=== PATIENT | female | born 1955 | race Caucasian/White ===

== ENCOUNTER 2016-07-11 14:53 | Inpatient (IN) | payer BC ==
--- NOTE | ~2016-07-11 | CT57 ---
[facility] A Service of [facility] & [facility] RADIOLOGY TEXT RESULTS PATIENT: TERRIE VALLEJO LOCATION: [facility] 332-01 : 54 UNIT #: [id number] AGE: [address]: Justin Hughes MD SEX: F ORDER DR: [id number] [facility] [address]. [place], [place] [address] [id number] I MR#: [id number] Acc #: [id number] NAME: TERRIE VALLEJO : 1955 SEX: F STUDY DATE/TIME: 07/12/2016 16:26 UNIT: [address] ROOM: [facility] STUDY DESCRIPTION: CT Chest Wo Cont Attending Physician: Justin Hughes M.D. Ordering Physician: Justin Hughes M.D. Primary Care Physician: Rolando Jean Baptiste M.D. MEDICAL IMAGING REPORT This report is preliminary unless electronic signature is present EXAM CT chest without contrast. DATE OF EXAM 07/12/2016 INDICATIONS Shortness of air for 2 to 3 days. Epigastric abdominal pain. Pancreatic carcinoma, status post chemotherapy and radiation therapy. TECHNIQUE CT of the chest without contrast. Coronal and sagittal reconstructions were obtained. NOTE: This CT exam was performed with one or more of the following radiation dose reduction techniques: automatic exposure control, adjustment of mA and/or kV according to patient size, and iterative reconstruction. COMPARISON Concurrent CT abdomen dated 07/12/2016. CT chest dated 07/02/2016. FINDINGS Enlarged mediastinal lymph nodes are fairly similar to the prior study. There is no pericardial effusion. The right pleural effusion has significantly increased from the prior study. A moderate left effusion is essentially unchanged. There is diffuse interstitial thickening, as well as perihilar ground-glass areas and areas of consolidation. Overall, there does appear to be increased density of multifocal airspace opacities when compared to the prior exam. Please note that the right lower lobe is poorly evaluated given the atelectasis from the patient's large effusion. Central airways are patent. Please refer to the separate dictated report for details on the abdomen. [facility] A Service of [facility] & [facility] RADIOLOGY TEXT RESULTS PATIENT: TERRIE VALLEJO LOCATION: [facility] 332-01 : 54 UNIT #: [id number] AGE: [address]: Justin Hughes MD SEX: F ORDER DR: No new osseous abnormalities. IMPRESSION 1. There has been slight progression and increased density of the multifocal airspace opacities throughout both lungs. This is most consistent with a multifocal pneumonia. Please note that that given the associated interstitial thickening, a component of pulmonary edema should also be considered. 2. Enlarged large right pleural effusion. This now results in atelectasis in the majority of the right lower lobe. 3. Moderate left pleural effusion is unchanged. 4. Mediastinal lymphadenopathy is similar to the prior exam. Dictated by... Braydon Quijano M.D. THIS IS AN ELECTRONICALLY VERIFIED REPORT Braydon Quijano M.D. at 07/13/2016 6:43 PM USMAN/mari TD: 07/12/2016 22:58 JOB #: [id number] MEDICAL IMAGING REPORT COPY
--- NOTE | ~2016-07-11 | CR72 ---
[facility] A Service of [facility] & [facility] RADIOLOGY TEXT RESULTS PATIENT: TERRIE VALLEJO LOCATION: [facility] 332-01 : 54 UNIT #: [id number] AGE: [address]: Justin Hughes MD SEX: F ORDER DR: [id number] [facility] [address]. [place], [place] [address] [id number] I MR#: [id number] Acc #: [id number] NAME: TERRIE VALLEJO : 1955 SEX: F STUDY DATE/TIME: 07/15/2016 11:46 UNIT: [address] ROOM: [facility] STUDY DESCRIPTION: CR Chest Single View Portable Attending Physician: Justin Hughes M.D. Ordering Physician: Yary Ponce M.D. Primary Care Physician: Rolando Jean Baptiste M.D. MEDICAL IMAGING REPORT This report is preliminary unless electronic signature is present EXAM AP portable chest 07/15/2016 COMPARISON 07/11/2016. HISTORY Status post thoracentesis. FINDINGS An AP view of the chest obtained. Bilateral infiltrates persist throughout both lungs. Right-sided chest port remains in place. There is a decrease in the amount of right pleural fluid. No pneumothorax is seen. CONCLUSION Continued diffuse severe bilateral infiltrates. Decreased right pleural fluid presumably post thoracentesis with no pneumothorax identified. Dictated by... Jarret Rao M.D. THIS IS AN ELECTRONICALLY VERIFIED REPORT Jarret Rao M.D. at 07/15/2016 12:57 PM Nelida TD: 07/15/2016 12:42 JOB #: [id number] MEDICAL IMAGING REPORT COPY
--- NOTE | ~2016-07-11 | US84 ---
[id number] [facility] [address] [place], [place] [address] [id number] I MR#: [id number] Acc #: [id number] NAME: TERRIE VALLEJO : 1955 SEX: F STUDY DATE/TIME: 07/17/2016 11:29 UNIT: C3A PCU ROOM: [facility] STUDY DESCRIPTION: US LE Veins Complete Gerardo Stdy Attending Physician: Justin Hughes M.D. Ordering Physician: Geoff Jama M.D. Primary Care Physician: Rolando Jean Baptiste M.D. MEDICAL IMAGING REPORT This report is preliminary unless electronic signature is present EXAM Color Doppler ultrasound examination of the lower extremities HISTORY Patient taking Lovenox for DVT. Bilateral leg swelling beginning February 2016. TECHNIQUE Ultrasound evaluation was performed with yanes-scale color-flow and Doppler spectral waveform analysis. FINDINGS Extensive venous thrombosis is seen bilaterally. Thrombus is identified from the common femoral veins down into the calf veins on both sides. The veins are noncompressible. Above the knee on both sides with thrombus is partially occlusive with some flow seen. This probably reflects chronic DVT with recanalization. IMPRESSION Findings suggest chronic DVT with recanalization. Thrombus is seen from the common femoral veins down to the popliteal veins on both sides but there is some flow noted suggesting partial recanalization. The venous thrombosis was not present on the previous ultrasound examination in February 2016. Dictated by... Bartolome Rojas M.D. THIS IS AN ELECTRONICALLY VERIFIED REPORT Bartolome Rojas M.D. at 07/17/2016 3:58 PM RLF/soledad TD: 07/17/2016 12:49 JOB #: [id number] MEDICAL IMAGING REPORT COPY
--- NOTE | ~2016-07-11 | CR72 ---
[facility] A Service of [facility] RADIOLOGY TEXT RESULTS PATIENT: TERRIE VALLEJO LOCATION: [facility] 332-01 : 54 UNIT #: [id number] AGE: [address]: Justin Hughes MD SEX: F ORDER DR: [id number] [facility] [address]. [place], [place] [address] [id number] E MR#: [id number] Acc #: [id number] NAME: TERRIE VALLEJO : 1955 SEX: F STUDY DATE/TIME: 07/11/2016 14:23 UNIT: [facility] ROOM: STUDY DESCRIPTION: CR Chest Single View Portable Attending Physician: Bartolome Alonso M.D. Ordering Physician: Bartolome Alonso M.D. Primary Care Physician: Rolando Jean Baptiste M.D. MEDICAL IMAGING REPORT This report is preliminary unless electronic signature is present EXAM Portable chest x-ray 07/11/2016 HISTORY Short of air. Pancreatic cancer. Diabetes, stroke. Symptoms began June 14. TECHNIQUE AP radiograph of chest presented COMPARISON CT scan 07/02/2016 and chest radiograph 07/06/2016 FINDINGS Chest port unchanged. Visualized cardia and mediastinal contours stable. Extensive bilateral airspace disease involving all lung zones most pronounced at the bilateral mid to upper lung zones and bilateral lung bases. Increased airspace density in the bilateral upper lung zones compared to prior study. Continued dense opacification at the bilateral lung bases felt secondary to both airspace disease and small bilateral pleural effusions. The effusions have increased in volume bilaterally. Findings suggest worsening multifocal pneumonia with bilateral parapneumonic effusions. There is no pneumothorax. Dictated by... Jarret Singleton M.D. THIS IS AN ELECTRONICALLY VERIFIED REPORT Jarret Singleton M.D. at 07/12/2016 5:52 PM JSK/to [facility] A Service of [facility] RADIOLOGY TEXT RESULTS PATIENT: TERRIE VALLEJO LOCATION: [facility] 332-01 : 54 UNIT #: [id number] AGE: [address]: Justin Hughes MD SEX: F ORDER DR: TD: 07/11/2016 17:19 JOB #: [id number] MEDICAL IMAGING REPORT COPY
--- NOTE | ~2016-07-11 | CR63 ---
[facility] A Service of [facility] & [facility] RADIOLOGY TEXT RESULTS PATIENT: TERRIE VALLEJO LOCATION: [facility] 332- : 54 UNIT #: [id number] AGE: [address]: Justin Hughes MD SEX: F ORDER DR: [id number] [facility] [address]. [place], [place] [address] [id number] I MR#: [id number] Acc #: [id number] NAME: TERRIE VALLEJO : 1955 SEX: F STUDY DATE/TIME: 07/17/2016 11:54 UNIT: [address] ROOM: [facility] STUDY DESCRIPTION: CR Chest 2 View Attending Physician: Justin Hughes M.D. Ordering Physician: Geoff Jama M.D. Primary Care Physician: Rolando Jean Baptiste M.D. MEDICAL IMAGING REPORT This report is preliminary unless electronic signature is present EXAM PA lateral chest INDICATIONS 60-year-old female with shortness of breath for 2 days. Compared with 07/15/2016 FINDINGS Stable right pleural effusion. Bilateral interstitial and airspace opacities are slightly improved. Heart size stable. Stable chest port. Trace left pleural effusion. IMPRESSION 1. Slight interval improvement in bilateral interstitial and airspace opacities. 2. Small right pleural effusion and trace left pleural effusion. Dictated by... Edwin Viera M.D. THIS IS AN ELECTRONICALLY VERIFIED REPORT Edwin Viera M.D. at 07/17/2016 4:03 PM ELO/soledad TD: 07/17/2016 14:04 JOB #: [id number] MEDICAL IMAGING REPORT COPY
--- NOTE | ~2016-07-11 | CT7 ---
[facility] A Service [facility] & [facility] RADIOLOGY TEXT RESULTS PATIENT: TERRIE VALLEJO LOCATION: [facility] 332-01 : 54 UNIT #: [id number] AGE: [address]: Justin Hughes MD SEX: F ORDER DR: [id number] [facility] [address]. [place], [place] [address] [id number] I MR#: [id number] Acc #: [id number] NAME: TERRIE VALLEJO : 1955 SEX: F STUDY DATE/TIME: 07/12/2016 16:00 UNIT: [address] ROOM: [facility] STUDY DESCRIPTION: CT Abdomen Wo Cont Attending Physician: Justin Hughes M.D. Ordering Physician: Justin Hughes M.D. Primary Care Physician: Rolando Jean Baptiste M.D. MEDICAL IMAGING REPORT This report is preliminary unless electronic signature is present EXAM CT abdomen INDICATIONS Epigastric abdominal pain. Shortness of air. Pancreatic carcinoma status post radiation therapy and chemotherapy. TECHNIQUE CT of the abdomen without contrast. Coronal and sagittal reconstructions were obtained. This CT exam was performed with one or more of the following radiation dose reduction techniques: automatic control, adjustment of mA and/or kV according to patient size, and iterative reconstruction. COMPARISON Concurrent CT chest 07/12/[address] chest 07/02/2016. CT abdomen 02/25/2016. FINDINGS Low attenuation hepatic metastases are fairly similar to the prior exam. No significant change in the short interval. There is a focal mass in the pancreatic tail region measuring up to 3.9 x 2.6 cm. This is not significantly changed in the short interval. The mass measures approximately 3.9 x 2.7 cm which is decreased from the prior exam 5.2 x 3.4 cm on 02/25/2016. Exact margins of the lesion are challenging given the lack of IV contrast. 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 This is unchanged. There are several small peritoneal nodules likely representing peritoneal metastatic disease. No new osseous abnormalities. [facility] A Service of [facility] & [facility] RADIOLOGY TEXT RESULTS PATIENT: TERRIE VALLEJO LOCATION: [facility] 332-01 : 54 UNIT #: [id number] AGE: [address]: Justin Hughes MD SEX: F ORDER DR: IMPRESSION 1. Although limited without IV contrast, the primary pancreatic mass appears to have decreased in size. 2. Multiple hepatic metastases are unchanged from most recent exam. 3. Possible peritoneal metastatic disease was not present on the 02/25/2016 exam. Dictated by... Braydon Quijano M.D. THIS IS AN ELECTRONICALLY VERIFIED REPORT Braydon Quijano M.D. at 07/13/2016 6:43 PM RPMaximilian/stephanier TD: 07/12/2016 23:00 JOB #: [id number] MEDICAL IMAGING REPORT COPY
--- NOTE | ~2016-07-11 | CO ---
Unit #: [id number] #: [id number] Patient: TERRIE SANCHEZ [id number] [address] [place], [place] [address] [id number] I MR#: [id number] NAME: TERRIE SANCHEZ ROOM: 332 Age: 60 Sex: F Admission Date: 07/11/2016 : 1955 Attending Physician: Justin Hughes M.D. Primary Care Physician: Rolando Jean Baptiste M.D. Consultation Date: 07/12/2016 CONSULTATION REPORT REASON FOR CONSULTATION Metastatic pancreatic cancer. HISTORY PRESENT ILLNESS Ms. Sanchez is a 60-year-old with a history of metastatic pancreatic cancer who is known to me from admission at [facility] including last week. She is followed by Dr. Gardner and is currently receiving chemotherapy with Abraxane and gemcitabine. She is supposed to have received chemotherapy earlier this week, but presented here to the emergency room because of worsening shortness of breathing. Dr. Bartolome Alonso, the ER physician called me after discussing situation, he doubted that she had infection, but given her shortness of breathing and weakness, decided to proceed with admission with potentially to receive chemotherapy during the hospital stay. Ms. Sanchez tells me that after she went home, she again became short of breath, cough without much expectoration, no hemoptysis. Appetite has been poor and she remains fatigued with pain in her low back. PAST MEDICAL HISTORY Metastatic pancreatic cancer diagnosed in 02/2016 when she was presented with the stroke, was found to have a mass in the body of the pancreas as well as multiple liver lesions with biopsy of both the pancreatic mass and liver confirming metastatic adenocarcinoma. Other medical problems include asthma, bipolar disorder, type 2 diabetes, gastroesophageal reflux disease, seasonal allergies, history of pulmonary embolism. PAST SURGICAL HISTORY Includes EGD, cholecystectomy, tubal ligation. FAMILY HISTORY Coronary artery disease in father and stroke in mother. SOCIAL HISTORY Used to drink alcohol occasionally. Never smoker. Does not drink. and lives with her . REVIEW OF SYSTEMS 14-point review of systems taken. CONSTITUTIONAL: As discussed above. EYES: Negative. EARS, NOSE, MOUTH, AND THROAT: Negative. CARDIOVASCULAR: Negative. RESPIRATORY: Shortness of breathing as discussed above. GASTROINTESTINAL: Negative. Unit #: [id number] #: [id number] Patient: TERRIE SANCEHZ GENITOURINARY: Negative. ALLERGIC/LYMPHATIC: Negative. SKIN: Negative. PSYCHIATRIC: History of bipolar disorder. PHYSICAL EXAMINATION GENERAL: Performance status is 1 to 2. She is a frail middle-aged woman, who looks older than her stated age. She is awake, alert, and oriented x3. VITAL SIGNS: Temperature is 98.6, pulse is 113, respiratory rate 16, blood pressure 120/70, O2 saturations 100% on oxygen. HEENT: Shows evidence of recent weight loss. Mild pallor. No icterus. Mucous membranes are dry. NECK: Without adenopathy, JVD, or thyromegaly. CARDIOVASCULAR: First and second heart sounds are heard with tachycardia. No murmurs, gallops, or rubs. LUNGS: Decreased air entry bilaterally somewhat worse on the right side. Few scattered rhonchi. ABDOMEN: Soft, nontender. Bowel sounds are active. EXTREMITIES: Show trace edema. Pulses are not felt. NEUROLOGIC: She is awake, alert, and oriented x3 without any focal findings. SKIN: Negative. ALLERGIC/LYMPHATIC: Negative. PSYCHIATRIC: Normal affect. Appears mildly depressed, which is not unexpected. DIAGNOSTIC STUDIES LABORATORY RESULTS: CBC with a white count of 7.8, hemoglobin is 10.1, platelet count is 390,000. Lactic acid 1.5. Metabolic panel with a BUN of 18, creatinine is 0.6, glucose is 139, ALT is 53, alkaline phosphatase 534, bilirubin is 0.4, albumin is 2.7, procalcitonin level is 0.37. IMAGING STUDIES: Chest x-ray, single view, was personally reviewed by me and I compared to her recent x-rays, which she has had at [facility]. She has bilateral air space disease, most pronounced in the mid to upper lung zone with some small bilateral pleural effusions. No pneumothorax. ASSESSMENT AND PLAN Ms. Sanchez is a 60-year-old with a history of metastatic pancreatic cancer currently receiving chemotherapy with Abraxane and gemcitabine. Her last chemo markers showed a CA-19-9, which used to be over 27,000 and is now currently about 5000 indicating a response. This is the third admission in as many weeks for shortness of breathing, pleural effusion, and bilateral lung infiltrates, which is likely noninfectious or at least not bacterial infection given the low procalcitonin as well as multiple course of antibiotics. Metastatic involvement of her lungs from pancreatic cancer would be unusual, but certainly a possibility although the tumor markers have shown an improvement suggesting response to current chemotherapy. Other positives include heart failure with pulmonary edema as well as atypical infection such as fungal or Pneumocystis carinii pneumonia. I discussed situation with the patient as well as with Dr. Hughes over the phone. RECOMMENDATIONS 1. CT scan of the chest and abdomen to be done with contrast to evaluate for metastatic disease to see with evidence of improvement radiologically and liver metastasis as well as to re-characterize her lung masses. 2. Would continue Lovenox given a history of pulmonary embolism. Unit #: [id number] #: [id number] Patient: TERRIE SANCHEZ 3. LDH, BNP, echocardiogram to evaluate both for LV function as well as evaluate for other possibility to suggest pericardial effusion. 4. Agree with current pain management. Plans were discussed in detail with Ms. Sanchez. We will follow with you. Dictated by... Ashly Tang/tomasz TD: 07/13/2016 06:59 JOB #: [id number] CONSULTATION REPORT X Geoff Jama MD X CONSULTATION REPORT
--- NOTE | ~2016-07-11 | XA203 ---
[facility] A Service of [facility] & [facility] RADIOLOGY TEXT RESULTS PATIENT: TERRIE VALLEJO LOCATION: [facility] 332- : 54 UNIT #: [id number] AGE: [address]: Justin Hughes MD SEX: F ORDER DR: [id number] [facility] [address]. [place], [place] [address] [id number] I MR#: [id number] Acc #: [id number] NAME: TERRIE VALLEJO : 1955 SEX: F STUDY DATE/TIME: 07/15/2016 11:33 UNIT: [address] ROOM: [facility] STUDY DESCRIPTION: XA Thoracentesis Attending Physician: Justin Hughes M.D. Ordering Physician: Justin Hughes M.D. Primary Care Physician: Rolando Jean Baptiste M.D. MEDICAL IMAGING REPORT This report is preliminary unless electronic signature is present EXAM Ultrasound-guided thoracentesis INDICATION Right pleural effusion PROCEDURE There risks, benefits, and alternatives to the procedure were explained to the patient and signed, informed consent was obtained. She was seated in the upright position. Preliminary ultrasound of the right hemithorax was performed which demonstrated a moderate right pleural effusion. This image was permanently saved. Overlying skin was marked. Patient was prepped and draped in the usual sterile fashion. Time-out was performed as per protocol. Skin and subcutaneous tissues were anesthetized with buffered lidocaine and a Dr. Jerry's Smooth Move catheter was advanced into the fluid with aspiration of serous material. The catheter was hooked to suction tubing. There is evacuation of a total of 650 mL of serous material. Catheter was then removed and manual pressure was applied until hemostasis was obtained. IMPRESSION Technically successful ultrasound guided right thoracentesis with evacuation 650 mL of serous material. Ultrasound was used during the procedure and permanent images were saved. Dictated by... Yary Ponce M.D. THIS IS AN ELECTRONICALLY VERIFIED REPORT Yary Ponce M.D. at 07/16/2016 4:35 PM GALILEO/narendra TD: 07/16/2016 08:35 JOB #: [id number] [facility] A Service of [facility] RADIOLOGY TEXT RESULTS PATIENT: TERRIE VALLEJO LOCATION: [facility] 332-01 : 54 UNIT #: [id number] AGE: [address]: Justin Hughes MD SEX: F ORDER DR: MEDICAL IMAGING REPORT COPY
--- NOTE | ~2016-07-11 | A ---
[facility] Nutrition Therapy DATE: 07/15/16 Patient: TERRIE VALLEJO Physician: MARÍA Address: [address] Room/Bed: [address] [place] [address], Zip: [place] [address] Admit Date: 07/11/16 Date of : 53 Height: 5 4.5 Weight: 112 51 NUTRITIONAL ASSESSMENT: REASON: 1 point malnutrition risk score re: eating poorly Admitting Dx: 60 y/o female admitted with SOB PMH: COPD, GERD, CVA, DM, anxiety, pancreatic cancer (Dx Jan) Anthropometrics: Ht: 64.5", Wt: 118 lbs, BMI: 19.9 Labs: K+ 3.4, Glucose 128, POC 130, AST 63 Meds: Furosemide, NACL, Levaquin, Vit E, PPI, Milk of Mg, Phenergan prn I/O & Bowel function: LBM 07/14 Skin Integrity: CSI R chest, edema LLE trace and RLE 1+ Estimated Nutrition Needs: Increased needs r/t cancer and weight loss Assessment: Chart reviewed, events noted. Weekend RD attempted to see patient but she was off the floor. Patient confirms eating poorly due to chemo/radiation with pancreatic cancer dx in Jan of last year. It is unclear whether her diabetes is due to the cancer or not, but it is well controlled, she takes Metformin at home and states her glucose usually runs in the 140's. Although she has gained 3 lbs recently she has lost overall ~12 lbs since January (9.2% loss; significant). She reports decreased appetite and dry mouth, RD ordering chocolate Ensure BID, drinks Ensure/protein shakes at home made by her . reports they were supposed to see an outpatient RD but were unable to due to the patients current clinical condition. Patient is on CC diet but patient would like it changed to regular- RD agreed- will ask MD to change. RD provided diet education with the following handouts: 1. Pancreatic cancer and DM, 2. 1800 calorie 5-day sample meal plan, 3. Ways to increase kcals/protein in diet, 4. HC/HP recipes. Left RD card as well, patient and appreciative of info. Will follow. Dx: Unintentional weight loss r/t decreased appetite, cancer AEB 1 point malnutrition risk score, 9.2% weight loss in 5 months. Intervention: Regular diet, Ensure BID, diet education Monitoring, Evaluation and Goals: 1. Adequate oral intake > 50-75% of meals/supps. 2. Prevent further unintentional weight loss. [facility] Nutrition Therapy DATE: 07/15/16 Patient: TERRIE VALLEJO Physician: MRAÍA Address: [address] [place] [address] Room/Bed: [address] [place] [address], Zip: [place] [address] Admit Date: 07/11/16 Date of : [birth year] Height: 5 4.5 Weight: 112 51 3. Glucose usually WNL. Monitor: Per protocol, criteria to determine if above goals met Recommendations: 1. Please change diet to regular due to the patient's recent weight loss, cancer dx, decreased appetite. Her blood glucose is well controlled at this time. Encourage small, frequent meals and continue Accucheks at home with weight monitoring as discussed with the patient. 2. RD ordered chocolate Ensure BID to increase kcal/protein intake. 3. Replace lytes prn (K+ low). Check A1C level. 4. RD gave diet education related to pancreatic cancer/DM, ways to increase kcals/protein in diet. Will follow hospital course Moderate nutrition risk Respectfully, Yajaira Palumbo RD, LD Food and Nutritional Services [facility] cc: client file
--- NOTE | ~2016-07-11 | HP ---
Unit #: [id number] #: [id number] Patient: TERRIE VALLEJO [id number] [address] [place], [place] [address] [id number] Ephraim MR#: [id number] NAME: TERRIE VALLEJO ROOM: 332 Age: 60 Sex: F Admission Date: 07/11/2016 : 1955 Attending Physician: Justin Hughes M.D. Primary Care Physician: Rolando Jean Baptiste M.D. HISTORY AND PHYSICAL CHIEF COMPLAINT Shortness of breath. HISTORY OF PRESENT ILLNESS A 60-year-old female with past medical history of metastatic pancreatic cancer, bilateral pleural effusion, recent pneumonia, recently admitted at [facility], who presented with a complaint of cough, shortness of breath, increasing exertion, dyspnea. I am seeing the patient at the bedside complaining of shortness of breath. Denies any chest pain. No nausea, vomiting, diarrhea. No other complaint. REVIEW OF SYSTEMS Positive for pallor. No edema. No cyanosis. No jaundice. The rest are per history of present illness. The rest of a 12-point review of system has been reviewed and is negative. PAST MEDICAL HISTORY As described above. Also, has history of bipolar disorder, diabetes, gastroesophageal reflux disease, seasonal allergies, history of pulmonary embolism, history of DVT. PAST SURGICAL HISTORY 1. EGD. 2. Cholecystectomy. 3. Tubal ligation. FAMILY HISTORY Coronary artery disease and stroke. PHYSICAL EXAMINATION VITAL SIGNS: Temperature 98, pulse 87, respirations 12, blood pressure 110/70. NEUROLOGIC: Awake, alert, oriented. No neuro deficit. HEENT: PERRLA plus 1. NECK: Supple. No JVD. CHEST: Bilateral air entry. Bilateral mild rhonchi. GASTROINTESTINAL: Nontender, soft. Bowel sounds positive. EXTREMITIES: No edema. SKIN: No rash. No ulcer. LYMPHATIC: No lymphadenopathy. DIAGNOSTIC STUDIES Labs and imaging have been reviewed. Unit #: [id number] #: [id number] Patient: TERRIE VALLEJO ASSESSMENT 1. Acute hypoxic respiratory failure. 2. Acute bilateral pleural effusion. 3. Pneumonia. 4. History of pancreatic cancer. 5. Critically ill patient. PLAN Plan is to continue IV antibiotics, IV steroids, diuretics, gastrointestinal/deep venous thrombosis prophylaxis, control sugars. Will plan to do a thoracentesis. Please see orders for detailed plan. Dictated by Ashly Mead TD: 07/18/2016 09:29 JOB #: [id number] HISTORY AND PHYSICAL X Justin Hughes MD HISTORY AND PHYSICAL
--- NOTE | ~2016-07-11 | XA77 ---
[facility] A Service of [facility] RADIOLOGY TEXT RESULTS PATIENT: TERRIE SANCHEZ LOCATION: C3A 332-01 : [birth year] UNIT #: [id number] AGE: [address]: Justin Hughes MD SEX: F ORDER DR: [id number] [facility] [address] [facility]. [place], [place] [address] [id number] MR#: [id number] Acc #: [id number] NAME: TERRIE SANCHEZ : 1955 SEX: F STUDY DATE/TIME: 07/15/2016 11:33 UNIT: C3A PCU ROOM: [facility] STUDY DESCRIPTION: XA CVC Port Devive Check Attending Physician: Justin Hughes M.D. Ordering Physician: Justin Hughes M.D. Primary Care Physician: Rolando Jean Baptiste M.D. MEDICAL IMAGING REPORT This report is preliminary unless electronic signature is present EXAM MediPort check INDICATION Ms. Sanchez has a port which was placed April 11, 2016. She reports that there has been difficulty aspirating from this port. Although it flushes easily. Port check has been requested. FINDINGS There risks, benefits, and alternatives to the procedure were explained to the patient and signed, informed consent was obtained. She was placed supine on the angiographic table. The port was accessed by the interventional radiology nurse. Initial wood and hardware outfitter image showed a previously placed right internal jugular vein port terminating within the superior vena cava. I then performed a catheter gram through the port which showed adherent fibrin sheath around the tip of the port. Patient's superior vena cava appears to be patent. Total fluoroscopy time was 0.1 minutes and a total of 4 fluoroscopic images were obtained. The patient tolerated the well and there were no immediate complications. IMPRESSION Patient's right internal jugular vein MediPort demonstrates adherent fibrin sheath around the distal tip. Treatment with tPA infusion is recommended. Dictated by... Yary Ponce M.D. THIS IS AN ELECTRONICALLY VERIFIED REPORT Yary Ponce M.D. at 07/16/2016 4:35 PM AFF/jw TD: 07/16/2016 08:32 [facility] A Service of [facility] RADIOLOGY TEXT RESULTS PATIENT: TERRIE SANCHEZ LOCATION: [facility] 332-01 : [birth year] UNIT #: [id number] AGE: [address]: Justin Hughes MD SEX: F ORDER DR: PEDRO #: [id number] MEDICAL IMAGING REPORT COPY
--- NOTE | ~2016-07-11 | OR ---
Unit #: [id number] #: [id number] Patient: TERRIE VALLEJO [id number] [address] [address] [id number] I MR#: [id number] NAME: TERRIE VALLEJO ROOM: [facility] Date of Procedure: 07/13/2016 Admission Date: 07/11/2016 Surgeon: Justin Hughes M.D. : 1955 Attending Physician: Justin Hughes M.D. Primary Care Physician: Rolando Jean Baptiste M.D. PROCEDURE OPERATIVE NOTE PROCEDURE PERFORMED Left-sided thoracentesis. DETAIL OF PROCEDURE After taking consent from patient explaining risks and benefits, the patient was placed in a proper position. Under ultrasound guidance with all aseptic technique, a small chest tube was introduced into the left pleural cavity and a 600 mL blood-tinged pleural fluid was drained and was sent to the lab for exam. Patient tolerated procedure well. No complications happened. Chest x-ray was ordered. Dictated by... Ashly Mead TD: 07/18/2016 09:43 JOB #: [id number] PROCEDURE OPERATIVE NOTE X Justin Hughes MD PROCEDURE OPERATIVE NOTE
--- NOTE | ~2016-07-11 | EKG ---
PATIENT: TERRIE VALLEJO UNIT #: [id number] Ventricular Rate: 113 BPM Atrial Rate: 113 BPM P-R Interval: 128 ms QRS Duration: 66 ms Q-T Interval: 338 ms QTC Calculation(Bezet): 463 ms P [place]: 58 degrees Calculated R [place]: 48 degrees Calculated T [place]: 55 degrees Diagnosis Line: Sinus tachycardia Diagnosis Line: Normal ECG Diagnosis Line: No previous ECGs available Diagnosis Line: Confirmed by DENIS BENNETT MD ([id number]) on 07/12/2016 Diagnosis Line: 6:22:24 AM INTERPRETING MD: DONALD WALSH
[~2016-07-11 14:53] MED LIST: ACETAMINOPHEN PO; ALBUTEROL2.5 MG/0.5 INH; ASPIRIN81 M2 PO; COUMADIN4 MG PO; DIPHENHYDRAMINE50 M1 PO; DRAMAMINE PO; GLIPIZIDE5 MG/BOTTL PO; IMMODIUM1 MG/5 M1 PO; LIDOVEX60 GM; LOVENOX SUBQ; METFORMIN HCL1000 M1 PO; METFORMIN HCL1000 M2 PO; MONTELUKAST SOD10 MG PO; ONDANSETRON ODT4 MG PO; PHENERGAN25 MG PO; POTASSIUM99 M2 PO; PROTONIX PO; VALIUM10 M1 PO; VITAMIN E200 UNI1 PO
[2016-07-11 15:08] LABS: POC - CKMB 2.3 ng/mL (0.0-7.9); POC - TROPONIN <0.05 ng/mL (<=0.05)
[2016-07-11 15:15] LABS: BASOPHIL# 0.1 X10e3 (0-0.3); BASOPHIL% 1.2 % (0-2.5); EOSINOPHIL# 0.1 X10e3 (0-0.7); EOSINOPHIL% 1.3 % (0.0-7.0); HEMATOCRIT 32.5 % (35.0-45.0); HEMOGLOBIN 10.1 gm/dL (12.0-16.0); LYMPHOCYTE# 0.9 X10e3 (1.0-3.5); LYMPHOCYTE% 11.9 % (17.0-45.0); MEAN CELL VOLUME 86.3 FL (83-96); MEAN CORPUSCULAR HEMOGLOBIN 26.8 PG (28-34); MEAN PLATELET VOLUME 9.1 FL (6.5-11.5); MONOCYTE# 1.2 X10e3 (0-1.0); MONOCYTE% 15.1 % (3.0-12.0); NEUTROPHIL# 5.5 X10e3 (1.5-7.1); NEUTROPHIL% 70.5 % (40-75); PLATELET COUNT 390 X10e3 (140-420); RED BLOOD COUNT 3.77 X10e (3.90-5.30); RED CELL DISTRIBUTION WIDTH 19.9 % (11.0-15.5); WHITE BLOOD COUNT 7.8 X10e3 (4.0-10.5)
[2016-07-11 15:16] LABS: DIFF IND NO
[2016-07-11 15:38] LABS: ALBUMIN SERUM 2.7 g/dL (3.5-5.0); ALKALINE PHOSPHATASE 534 U/L (32-92); ALT (SGPT) 43 U/L (10-40); AST (SGOT) 54 U/L (10-42); BILIRUBIN, DIRECT 0.4 mg/dL (0.0-0.2); BILIRUBIN,INDIRECT 0.6 mg/dL (0.0-0.9); BLOOD UREA NITROGEN 18 mg/dL (9-23); CALCIUM SERUM 8.3 mg/dL (8.4-10.2); CARBON DIOXIDE 28 mmol/L (22-31); CHLORIDE 101 mmol/L (100-111); CREATININE SERUM 0.6 mg/dL (0.6-1.4); GLOM FILT RATE Estimated ABOVE60 mL/min (>60); GLUCOSE FASTING 139 mg/dL (70-110); POTASSIUM 4.2 mmol/L (3.5-5.1); PROTEIN TOTAL SERUM 6.3 g/dL (6.0-8.3); SODIUM 139 mmol/L (135-145)
[2016-07-11] MEDS ORDERED: METFORMIN HCL1000 M1 PO (16:23)
[2016-07-11] MEDS ORDERED: ASPIRIN EC81 M1 PO (16:23)
[2016-07-11] MEDS ORDERED: NEXIUM PO (16:24)
[2016-07-11] MEDS ORDERED: MONTELUKAST SOD10 MG PO (16:24)
[2016-07-11] MEDS ORDERED: GLUCOPHAGE500 M1 PO (16:24)
[2016-07-11] MEDS ORDERED: COMBIVENT U/D3 M1 INH (16:25)
[2016-07-11] MEDS ORDERED: PHENERGAN25 M1 PO (16:25)
[2016-07-11] MEDS ORDERED: [UNRECOGNIZED DRUG - OTHER] TOP (16:26)
[2016-07-11] MEDS ORDERED: DILAUDID4 M1 PO (16:26)
[2016-07-11] MEDS ORDERED: MILK OF MAGNESIA PO (16:27)
[2016-07-11] MEDS ORDERED: TYL325 PO (16:27)
[2016-07-11] MEDS ORDERED: DIPHENHYDRAMINE50 M1 PO (16:28)
[2016-07-11] MEDS ORDERED: NATURAL VITA100 UNIT PO (16:29)
[2016-07-11] MEDS ORDERED: LOVENOX40 MG/0.4 SUBQ (16:30)
[2016-07-11] MEDS ORDERED: PERCOCET 10/3251 TAB PO (16:30)
[2016-07-11] MEDS ORDERED: DURAGESIC1 EAC2 TD (16:31)
[2016-07-11] MEDS ORDERED: GUAIFENESIN LA600 M1 PO (16:31)
[2016-07-11] MEDS ORDERED: OCEAN45 ML (16:32)
[2016-07-11] MEDS ORDERED: POTASSIUM99 M1 PO (16:33)
[2016-07-13 06:00] LABS: HEMATOCRIT 29.9 % (35.0-45.0); HEMOGLOBIN 9.4 gm/dL (12.0-16.0); MEAN CELL VOLUME 86.5 FL (83-96); MEAN CORPUSCULAR HEMOGLOBIN 27.2 PG (28-34); MEAN CORPUSCULAR HGB CONC 31.5 g/dL (30-36); MEAN PLATELET VOLUME 9.2 FL (6.5-11.5); RED BLOOD COUNT 3.46 X10e (3.90-5.30); RED CELL DISTRIBUTION WIDTH 19.3 % (11.0-15.5); WHITE BLOOD COUNT 8.2 X10e3 (4.0-10.5)
[2016-07-13 06:36] LABS: ALBUMIN SERUM 2.4 g/dL (3.5-5.0); ALKALINE PHOSPHATASE 578 U/L (32-92); ALT (SGPT) 39 U/L (10-40); AST (SGOT) 56 U/L (10-42); BLOOD UREA NITROGEN 14 mg/dL (9-23); CALCIUM SERUM 8.7 mg/dL (8.4-10.2); CARBON DIOXIDE 30 mmol/L (22-31); CHLORIDE 101 mmol/L (100-111); CREATININE SERUM 0.7 mg/dL (0.6-1.4); GLOM FILT RATE Estimated ABOVE60 mL/min (>60); GLUCOSE FASTING 100 mg/dL (70-110); POTASSIUM 4.6 mmol/L (3.5-5.1); PROTEIN TOTAL SERUM 5.3 g/dL (6.0-8.3); SODIUM 140 mmol/L (135-145)
[2016-07-13 16:24] LABS: BODY FLUID APPEARANCE TURBID; BODY FLUID SOURCE THORACENTESIS
[2016-07-14 08:26] LABS: BASOPHIL# 0.1 X10e3 (0-0.3); BASOPHIL% 0.7 % (0-2.5); EOSINOPHIL# 0.1 X10e3 (0-0.7); EOSINOPHIL% 0.6 % (0.0-7.0); HEMATOCRIT 30.8 % (35.0-45.0); HEMOGLOBIN 9.5 gm/dL (12.0-16.0); LYMPHOCYTE# 0.6 X10e3 (1.0-3.5); LYMPHOCYTE% 6.2 % (17.0-45.0); MEAN CELL VOLUME 86.1 FL (83-96); MEAN CORPUSCULAR HEMOGLOBIN 26.7 PG (28-34); MEAN PLATELET VOLUME 8.7 FL (6.5-11.5); MONOCYTE# 1.1 X10e3 (0-1.0); MONOCYTE% 12.5 % (3.0-12.0); NEUTROPHIL# 7.1 X10e3 (1.5-7.1); PLATELET COUNT 394 X10e3 (140-420); RED BLOOD COUNT 3.58 X10e (3.90-5.30); RED CELL DISTRIBUTION WIDTH 19.4 % (11.0-15.5); WHITE BLOOD COUNT 8.8 X10e3 (4.0-10.5)
[2016-07-14 08:31] LABS: DIFF IND NO
[2016-07-14 08:53] LABS: ALBUMIN SERUM 2.5 g/dL (3.5-5.0); ALKALINE PHOSPHATASE 584 U/L (32-92); ALT (SGPT) 37 U/L (10-40); AST (SGOT) 49 U/L (10-42); BLOOD UREA NITROGEN 14 mg/dL (9-23); CALCIUM SERUM 8.5 mg/dL (8.4-10.2); CARBON DIOXIDE 32 mmol/L (22-31); CHLORIDE 96 mmol/L (100-111); CREATININE SERUM 0.7 mg/dL (0.6-1.4); GLOM FILT RATE Estimated ABOVE60 mL/min (>60); GLUCOSE FASTING 127 mg/dL (70-110); POTASSIUM 3.5 mmol/L (3.5-5.1); PROTEIN TOTAL SERUM 5.8 g/dL (6.0-8.3); SODIUM 138 mmol/L (135-145)
[2016-07-14 09:08] LABS: FERRITIN 172 ng/mL (11-307)
[2016-07-14 09:13] LABS: IRON SERUM 22 ug/dL (28-170); TOTAL IRON BINDING CAPACITY 279 ug/dL (269-535); TRANSFERRIN 200 mg/dL (192-382); TRANSFERRIN SATURATION 8 % (20-50)
[2016-07-15 09:14] LABS: INR 1.1; PROTHROMBIN TIME (PATIENT) 11.5 SECONDS (9.6-11.5)
[2016-07-15 09:15] LABS: BASOPHIL# 0.1 X10e3 (0-0.3); BASOPHIL% 0.7 % (0-2.5); EOSINOPHIL# 0.1 X10e3 (0-0.7); EOSINOPHIL% 0.9 % (0.0-7.0); HEMATOCRIT 32.1 % (35.0-45.0); HEMOGLOBIN 10.1 gm/dL (12.0-16.0); LYMPHOCYTE# 1.1 X10e3 (1.0-3.5); LYMPHOCYTE% 10.9 % (17.0-45.0); MEAN CORPUSCULAR HGB CONC 31.4 g/dL (30-36); MONOCYTE# 1.6 X10e3 (0-1.0); MONOCYTE% 15.4 % (3.0-12.0); NEUTROPHIL# 7.3 X10e3 (1.5-7.1); NEUTROPHIL% 72.1 % (40-75); PLATELET COUNT 416 X10e3 (140-420); RED BLOOD COUNT 3.74 X10e (3.90-5.30); RED CELL DISTRIBUTION WIDTH 19.2 % (11.0-15.5); WHITE BLOOD COUNT 10.2 X10e3 (4.0-10.5)
[2016-07-15 09:19] LABS: DIFF IND NO
[2016-07-15 09:41] LABS: ALBUMIN SERUM 2.6 g/dL (3.5-5.0); ALKALINE PHOSPHATASE 619 U/L (32-92); ALT (SGPT) 40 U/L (10-40); AST (SGOT) 63 U/L (10-42); BLOOD UREA NITROGEN 13 mg/dL (9-23); BUN/CREATININE RATIO 21.66; CALCIUM SERUM 8.8 mg/dL (8.4-10.2); CARBON DIOXIDE 33 mmol/L (22-31); CHLORIDE 94 mmol/L (100-111); CREATININE SERUM 0.6 mg/dL (0.6-1.4); GLOM FILT RATE Estimated ABOVE60 mL/min (>60); GLUCOSE FASTING 128 mg/dL (70-110); POTASSIUM 3.4 mmol/L (3.5-5.1); PROTEIN TOTAL SERUM 6.1 g/dL (6.0-8.3); SODIUM 139 mmol/L (135-145)
[2016-07-16 06:09] LABS: BASOPHIL% 0.1 % (0-2.5); HEMATOCRIT 30.7 % (35.0-45.0); HEMOGLOBIN 9.5 gm/dL (12.0-16.0); LYMPHOCYTE# 0.1 X10e3 (1.0-3.5); LYMPHOCYTE% 2.2 % (17.0-45.0); MEAN CELL VOLUME 85.9 FL (83-96); MEAN CORPUSCULAR HEMOGLOBIN 26.5 PG (28-34); MEAN CORPUSCULAR HGB CONC 30.9 g/dL (30-36); MEAN PLATELET VOLUME 9.3 FL (6.5-11.5); MONOCYTE# 0.2 X10e3 (0-1.0); MONOCYTE% 2.7 % (3.0-12.0); NEUTROPHIL# 5.3 X10e3 (1.5-7.1); RED BLOOD COUNT 3.58 X10e (3.90-5.30); WHITE BLOOD COUNT 5.6 X10e3 (4.0-10.5)
[2016-07-16 06:42] LABS: BLOOD UREA NITROGEN 13 mg/dL (9-23); BUN/CREATININE RATIO 18.57; CALCIUM SERUM 8.1 mg/dL (8.4-10.2); CARBON DIOXIDE 34 mmol/L (22-31); CHLORIDE 97 mmol/L (100-111); CREATININE SERUM 0.7 mg/dL (0.6-1.4); GLOM FILT RATE Estimated ABOVE60 mL/min (>60); GLUCOSE FASTING 295 mg/dL (70-110); SODIUM 137 mmol/L (135-145)
[2016-07-16 07:56] LABS: DIFF IND NO; PLATELET COUNT 354 X10e3 (140-420)
[2016-07-17 04:55] LABS: HEMATOCRIT 28.4 % (35.0-45.0); HEMOGLOBIN 8.9 gm/dL (12.0-16.0); MEAN CORPUSCULAR HEMOGLOBIN 26.8 PG (28-34); MEAN CORPUSCULAR HGB CONC 31.1 g/dL (30-36); MEAN PLATELET VOLUME 9.4 FL (6.5-11.5); RED BLOOD COUNT 3.31 X10e (3.90-5.30); RED CELL DISTRIBUTION WIDTH 19.1 % (11.0-15.5)
[2016-07-17 04:58] LABS: WHITE BLOOD COUNT 8.6 X10e3 (4.0-10.5)
[2016-07-17 06:13] LABS: ALBUMIN SERUM 2.4 g/dL (3.5-5.0); ALKALINE PHOSPHATASE 554 U/L (32-92); ALT (SGPT) 49 U/L (10-40); AST (SGOT) 88 U/L (10-42); BILIRUBIN,TOTAL 1.1 mg/dL (0.2-2.0); BLOOD UREA NITROGEN 18 mg/dL (9-23); BUN/CREATININE RATIO 25.71; CALCIUM SERUM 8.2 mg/dL (8.4-10.2); CARBON DIOXIDE 35 mmol/L (22-31); CHLORIDE 98 mmol/L (100-111); CREATININE SERUM 0.7 mg/dL (0.6-1.4); GLOM FILT RATE Estimated ABOVE60 mL/min (>60); GLUCOSE FASTING 166 mg/dL (70-110); POTASSIUM 3.4 mmol/L (3.5-5.1); PROTEIN TOTAL SERUM 5.5 g/dL (6.0-8.3); SODIUM 139 mmol/L (135-145)
[2016-07-18 07:15] LABS: HEMATOCRIT 27.4 % (35.0-45.0); HEMOGLOBIN 8.7 gm/dL (12.0-16.0); MEAN CELL VOLUME 85.3 FL (83-96); MEAN CORPUSCULAR HGB CONC 31.6 g/dL (30-36); RED BLOOD COUNT 3.21 X10e (3.90-5.30); RED CELL DISTRIBUTION WIDTH 18.5 % (11.0-15.5); WHITE BLOOD COUNT 7.7 X10e3 (4.0-10.5)
[2016-07-18 07:49] LABS: ALBUMIN SERUM 2.4 g/dL (3.5-5.0); ALKALINE PHOSPHATASE 558 U/L (32-92); ALT (SGPT) 69 U/L (10-40); AST (SGOT) 103 U/L (10-42); BLOOD UREA NITROGEN 17 mg/dL (9-23); BUN/CREATININE RATIO 28.33; CALCIUM SERUM 8.4 mg/dL (8.4-10.2); CARBON DIOXIDE 36 mmol/L (22-31); CHLORIDE 95 mmol/L (100-111); CREATININE SERUM 0.6 mg/dL (0.6-1.4); GLOM FILT RATE Estimated ABOVE60 mL/min (>60); GLUCOSE FASTING 153 mg/dL (70-110); POTASSIUM 3.8 mmol/L (3.5-5.1); PROTEIN TOTAL SERUM 5.7 g/dL (6.0-8.3); SODIUM 140 mmol/L (135-145)
[2016-07-21 06:31] LABS: POTASSIUM 3.5 mmol/L (3.5-5.1)
[2016-07-21] MEDS ORDERED: KLOR-CON 88 ME1 PO (17:17)
[2016-07-21] MEDS ORDERED: SALAGEN5 M1 PO (17:23)
== END 2016-07-21 18:51 | disposition home or self-care (01) | DRG 435 ==
LOC: CED 14:53 → CEDOF 17:56 → C3A PCU 22:00
PROVIDERS: Emergency Medicine; Internal Medicine; Radiology Diagnostic Radiology
PROC: B24BYZZ Ultrasonography of Heart with Aorta using Other Contrast (ICD-10-PCS; 2016-07-12)
PROC: 0W9B30Z Drainage of Left Pleural Cavity with Drainage Device, Percutaneous Approach (ICD-10-PCS; principal; 2016-07-13)
PROC: 0W9930Z Drainage of Right Pleural Cavity with Drainage Device, Percutaneous Approach (ICD-10-PCS; 2016-07-15)
DX: C25.9 Malignant neoplasm of pancreas, unspecified (principal); J96.01 Acute respiratory failure with hypoxia; J91.0 Malignant pleural effusion; J18.9 Pneumonia, unspecified organism; E44.0 Moderate protein-calorie malnutrition; C78.7 Secondary malignant neoplasm of liver and intrahepatic bile duct; Z68.1 Body mass index [BMI] 19.9 or less, adult; K21.9 Gastro-esophageal reflux disease without esophagitis; J45.909 Unspecified asthma, uncomplicated; F31.9 Bipolar disorder, unspecified; E11.9 Type 2 diabetes mellitus without complications; Z79.84 Long term (current) use of oral hypoglycemic drugs; Z90.49 Acquired absence of other specified parts of digestive tract; Z98.51 Tubal ligation status
CPT/HCPCS: 36415; 71010; 71020; 71250; 74150; 80048; 80053; 80076; 82308; 82553; 82607; 82728; 82947; 83540; 83550; 83605; 83615; 83735; 83880; 83986; 84132; 84157; 84484; 85025; 85027; 85610; 85730; 87040; 87070; 87205; 88108; 89051; 93005; 93306; 93970; 94640; 94760; 94761; 96360; 97162; 97165; 99285; J0780; J1100; J1650; J1940; J1956; J2405; J2469; J2997; J9201; J9264; Q9967

== ENCOUNTER → 2016-07-29 | Outpatient (CLI) | payer BC ==
[~2016-07-29] MED LIST changes: +ASPIRIN EC81 M1 PO; +COMBIVENT U/D3 M1 INH; +DILAUDID4 M1 PO; +DURAGESIC1 EAC2 TD; +GLUCOPHAGE500 M1 PO; +GUAIFENESIN LA600 M1 PO; +KLOR-CON 88 ME1 PO; +LOVENOX40 MG/0.4 SUBQ; +MILK OF MAGNESIA PO; +NATURAL VITA100 UNIT PO; +NEXIUM PO; +OCEAN45 ML; +PERCOCET 10/3251 TAB PO; +PHENERGAN25 M1 PO; +POTASSIUM99 M1 PO; +SALAGEN5 M1 PO; +TYL325 PO; +[UNRECOGNIZED DRUG - OTHER] TOP
--- NOTE | ~2016-07-29 | CT2 ---
[facility] A Service of [facility] RADIOLOGY TEXT RESULTS PATIENT: TERRIE VALLEJO LOCATION: CCAT : 53 UNIT #: [id number] AGE: [address]: BUNNY SANDOVAL MD SEX: F ORDER DR: [id number] [facility] [address] [facility]. [place], [place] [address] [id number] O MR#: [id number] [facility] #: [id number] NAME: TERRIE VALLEJO : 1955 SEX: F STUDY DATE/TIME: 07/29/2016 17:30 UNIT: CCAT ROOM: STUDY DESCRIPTION: CT Abd and Pelv W Cont Attending Physician: Bunny Sandoval M.D. Referring Physician: Bunny Sandoval M.D. Ordering Physician: Bunny Sandoval M.D. Primary Care Physician: Bunny Sandoval M.D. MEDICAL IMAGING REPORT This report is preliminary unless electronic signature is present EXAM CT abdomen and pelvis with contrast INDICATION Pancreatic cancer restaging. Status post chemotherapy. Observation for response to therapy and metastatic disease. PROCEDURE Contrast-enhanced CT of the abdomen and pelvis. 100 mL of Isovue-370. COMPARISON 07/12/2016. TECHNIQUE This CT examination was performed with one or more of the following radiation dose reduction techniques: automatic exposure control, adjustment of mA and/or kV according to patient size, and iterative reconstruction. FINDINGS Redemonstration of right-sided pulmonary embolus. There is new pulmonary embolus in the left lower lobe pulmonary arteries. Large right, moderate left pleural effusion similar. Bilateral lower lobe opacities may be slightly improved on the left, and improving on the right. Likely compressive atelectasis right middle lobe and right lower lobe. There is a possible nodule in the right lower lobe measuring 1.7 cm. ABDOMEN WITH CONTRAST: Mass at the pancreatic body tail junction measures 3.4 x 3.1 cm previously 3.8 x 3 cm. Measurement on the previous study is difficult given lack of contrast. There are multiple hepatic metastases. Index metastasis posterior right hepatic lobe measures 3.8 cm, previously 3.2 cm. A second index metastasis anterior right hepatic lobe measures STS. [facility] A Service of [facility] RADIOLOGY TEXT RESULTS PATIENT: TERRIE VALLEJO LOCATION: CCAT : 54 UNIT #: [id number] AGE: [address]: BUNNY SANDOVAL MD SEX: F ORDER DR: 4.2 cm previously 3.3 cm. Splenic vein is occluded. Portal vein remains patent. Kidneys, adrenal glands unremarkable. Previous cholecystectomy. The bowel loops are nondilated. Large colonic stool burden left side of the colon. PELVIS WITH CONTRAST: There is focal DVT in the right common iliac vein. No pelvic mass. No aggressive appearing bone lesion. IMPRESSION 1. Interval progression of hepatic metastatic disease. 2. The mass in the body/tail junction of the pancreas is probably similar in size from the previous unenhanced study. 3. Possible pulmonary metastasis in the right lower lobe, however this is not definitive. 4. Large right and moderate left pleural effusions similar. 5. Right pulmonary embolus similar to a previous CTA. 6. Focal DVT in the right common iliac vein. 7. Large left-sided colonic stool burden. Dictated by... Juan Jose Caro M.D. THIS IS AN ELECTRONICALLY VERIFIED REPORT Juan Jose Caro M.D. at 07/31/2016 7:07 AM NICHELLE/olaf TD: 07/30/2016 09:26 JOB #: [id number] MEDICAL IMAGING REPORT COPY
== END | disposition home or self-care (01) ==
LOC: CCAT 16:01
DX: C25.3 Malignant neoplasm of pancreatic duct (principal); C78.7 Secondary malignant neoplasm of liver and intrahepatic bile duct; I26.99 Other pulmonary embolism without acute cor pulmonale; I82.421 Acute embolism and thrombosis of right iliac vein
CPT/HCPCS: 74177; J1642; Q9967